=== PATIENT | female | born 1970 | race Caucasian/White ===

== ENCOUNTER → 2016-12-19 | Outpatient (CLI) | payer OTHER ==
--- NOTE | 2016-12-19 11:06 | RAD ---
Indication multinodular goiter. Follow-up. Grayscale imaging targeted to the thyroid was performed. Comparison is made to an examination 05/09/2016. The right lobe of the thyroid measures 4.9 x 1.6 x 2.4 cm. There is a dominant nodule in the right lobe of the thyroid measuring approximately 2.5 cm in greatest dimension. There is now a focus of diminished echogenicity which may represent some cystic degeneration of the dominant nodule in the right lobe. The isthmus appears unremarkable. The left lobe of the thyroid measures approximately 4.4 x 1.6 x 1.5 cm. Three nodules are again seen and have not changed appreciably relative to the previous exam. IMPRESSION: Findings remain most compatible with multinodular goiter. A significant change in the appearance of the thyroid relative to the previous exam is not seen.
== END | disposition home or self-care (01) ==
LOC: US 09:02
PROVIDERS: ATTEND Internal Medicine
DX: E04.2 Nontoxic multinodular goiter (principal)
CPT/HCPCS: 76536

== ENCOUNTER → 2020-05-07 | Outpatient (CLI) | payer MEDICARE, OTHER ==
[2019-07-20 15:00] VITALS: BP 125/76
[~2020-05-07] MED LIST: CYCL5TAB PO; DOCU100C28 PO; DULO60CA6 PO; GABA300C18 PO; HYDR-2769 PO; HYDR-3164 PO; LIDO700A21 TD; LISI10TA2 PO; METF500T PO; METF500T16 PO
--- NOTE | 2020-05-07 11:21 | RAD ---
BILATERAL SCREENING MAMMOGRAM, 3-D History: Routine screening. Comparison: 06/17/2013. Technique: MLO and CC digital tomosynthesis (3D) images obtained. Radiologist reviewed these images on dedicated workstation. Findings: Breast Tissue Density B : There are scattered areas of fibroglandular density. There are no new dominant masses, suspicious microcalcifications, or architectural distortion. Masses are present bilaterally but stable IMPRESSION: No mammographic evidence of malignancy. Recommend routine screening. BI-RADS category 1: Negative. The images were reviewed with computer-aided detection. Patient information is entered into reminder system with a target due date for the next screening mammogram. Mammography is the most sensitive method for finding small breast cancers, but it does not detect them all and is not a substitute for careful clinical examination. A negative mammogram does not negate a clinically suspicious finding and should not result in delay in biopsying a clinically suspicious abnormality. "Our facility is accredited by the [employer] Mammography Program." Electronically signed by: Yahir Melendez MD (05/07/2020 11:18 AM) [facility]
== END ==
LOC: MAMMO 08:15
PROVIDERS: ATTEND Internal Medicine
DX: Z12.31 Encounter for screening mammogram for malignant neoplasm of breast (principal)
CPT/HCPCS: 77063; 77067

== ENCOUNTER 2020-10-04 10:09 | Emergency (ER) | payer MEDICARE, OTHER ==
[~2020-10-04] VITALS: Ht 129.5 cm; Wt 101.6 kg
[~2020-10-04 10:09] MED LIST changes: +LISI10TA16 PO; -LISI10TA2 PO
[2020-10-04 10:58] LABS: BASO # 0.1 x10^3/uL (0.0-0.2); BASO % 1 % (0-3); EOS # 0.1 x10^3/uL (0.0-0.7); EOS % 1 % (0-3); HEMATOCRIT 43.4 % (36.0-47.0); LYMPH # 1.4 x10^3/uL (1.0-4.8); LYMPH % 16 % (24-48); MEAN CORPUSCULAR HEMOGLOBIN 33 pg (25-35); MEAN CORPUSCULAR HGB CONC 35 g/dL (31-37); MEAN CORPUSCULAR VOLUME 94 fL (79-100); MONO # 0.9 x10^3/uL (0.0-1.1); MONO % 10 % (0-9); NEUT # 6.5 x10^3/uL (1.8-7.7); NEUT % 72 % (31-73); PLATELET COUNT 266 x10^3/uL (140-400); RED BLOOD COUNT 4.63 x10^6/uL (3.50-5.40); RED CELL DISTRIBUTION WIDTH 13.3 % (11.5-14.5)
[2020-10-04] MEDS ORDERED: ONDANSETRON PF 4 MG/2 ML VIAL. IVP ONE (11:00)
[2020-10-04] MEDS ORDERED: FAMOTIDINE 20 MG/2 ML VIAL IVP ONE (11:00)
[2020-10-04] MEDS ORDERED: IV NORMAL SALINE 1000ML BAG 1,000 ML IV ONE (11:00)
[2020-10-04 11:22] LABS: PROTHROMBIN TIME PATIENT 13.2 SEC (11.7-14.0)
--- NOTE | 2020-10-04 11:33 | PHYS DOC ---
Past Medical History Past Medical History: Diverticulosis, Hypertension, Other Additional Past Medical Histor: CHRONIC BACK PAIN, neuropathy, RA Past Surgical History: Hysterectomy, Tonsillectomy, Other Additional Past Surgical Histo: lumbar sx, colonoscopy, adenoidectomy Smoking Status: Never Smoker Alcohol Use: None Drug Use: None General Adult EDM: Chief Complaint: ABDOMINAL PAIN HPI: HPI: Patient is a 50 year old female with history of hypertension presenting to the ED today complaining of 5 out of 10 cramping abdominal pain with nausea vomiting and diarrhea some of it bloody, symptoms have been going on for 6 months. Symptoms reoccurred yesterday. Patient denies any hematemesis. Denies any chest pain or shortness of breath. Denies any concerns for COVID-19. Review of Systems: Review of Systems: Constitutional: Denies fever or chills. [] Eyes: Denies change in visual acuity. [] HENT: Denies nasal congestion or sore throat. [] Respiratory: Denies cough or shortness of breath. [] Cardiovascular: Denies chest pain or edema. [] GI: Reports abdominal pain, nausea vomiting and bloody stools : Denies dysuria. [] Musculoskeletal: Denies back pain or joint pain. [] Integument: Denies rash. [] Neurologic: Denies headache, focal weakness or sensory changes. [] Psychiatric: Denies depression or anxiety. [] Heart Score: C/O Chest Pain: No Risk Factors: Risk Factors: DM, Current or recent (<one month) smoker, HTN, HLP, family history of CAD, obesity. Risk Scores: Score 0 - 3: 2.5% MACE over next 6 weeks - Discharge Home Score 4 - 6: 20.3% MACE over next 6 weeks - Admit for Clinical Observation Score 7 - 10: 72.7% MACE over next 6 weeks - Early Invasive Strategies Current Medications: Current Medications Medications (Trade) Dose Ordered Sig/Dee Dee Start Time Stop Time Status Last Admin Dose Admin Famotidine (Pepcid Vial) 20 mg 1X ONCE 10/04/20 11:00 10/04/20 11:01 DC 10/04/20 11:07 20 MG Ondansetron HCl (Zofran) 4 mg 1X ONCE 10/04/20 11:00 10/04/20 11:01 DC 10/04/20 11:06 4 MG Sodium Chloride 1,000 ml @ 1,000 mls/hr 1X ONCE 10/04/20 11:00 10/04/20 11:59 10/04/20 11:04 1,000 MLS/HR Allergies: Allergies: Allergies Coded Allergies Type Severity Reaction Last Updated Verified No Known Drug Allergies 06/14/13 No Physical Exam: PE: Constitutional: Well developed, well nourished, no acute distress, non-toxic appearance. [] HENT: Normocephalic, atraumatic, bilateral external ears normal, oropharynx moist, no oral exudates, nose normal. [] Eyes: PERRLA, EOMI, conjunctiva normal, no discharge. [] Neck: Normal range of motion, no tenderness, supple, no stridor. [] Cardiovascular:Heart rate regular rhythm, no murmur [] Lungs & Thorax: Bilateral breath sounds clear to auscultation [] Abdomen: Bowel sounds normal, soft, no tenderness, no masses, no pulsatile masses. [] Rectal exam-external rectum appears excoriated. No external or internal hemorrhoids or lesions noted. No stool noted on the lower rectal vault. No bleeding. Back: No tenderness, no CVA tenderness. [] Extremities: No tenderness, no cyanosis, no clubbing, ROM intact, no edema. [] Neurologic: Alert and oriented X 3, normal motor function, normal sensory function, no focal deficits noted. [] Psychologic: Affect normal, judgement normal, mood normal. [] Current Patient Data: Labs: Laboratory Tests Test 10/04/20 10:40 White Blood Count 9.0 x10^3/uL (4.0-11.0) Red Blood Count 4.63 x10^6/uL (3.50-5.40) Hemoglobin 15.0 g/dL (12.0-15.5) Hematocrit 43.4 % (36.0-47.0) Mean Corpuscular Volume 94 fL (79-100) Mean Corpuscular Hemoglobin 33 pg (25-35) Mean Corpuscular Hemoglobin Concent 35 g/dL (31-37) Red Cell Distribution Width 13.3 % (11.5-14.5) Platelet Count 266 x10^3/uL (140-400) Neutrophils (%) (Auto) 72 % (31-73) Lymphocytes (%) (Auto) 16 % (24-48) L Monocytes (%) (Auto) 10 % (0-9) H Eosinophils (%) (Auto) 1 % (0-3) Basophils (%) (Auto) 1 % (0-3) Neutrophils # (Auto) 6.5 x10^3/uL (1.8-7.7) Lymphocytes # (Auto) 1.4 x10^3/uL (1.0-4.8) Monocytes # (Auto) 0.9 x10^3/uL (0.0-1.1) Eosinophils # (Auto) 0.1 x10^3/uL (0.0-0.7) Basophils # (Auto) 0.1 x10^3/uL (0.0-0.2) Prothrombin Time 13.2 SEC (11.7-14.0) Prothrombin Time INR 1.0 (0.8-1.1) Activated Partial Thromboplast Time 25 SEC (24-38) Ethyl Alcohol Level < 10 mg/dL (0-10) Laboratory Tests 10/04/20 10:40 Vital Signs: Vital Signs Date Time Temp Pulse Resp B/P (MAP) Pulse Ox O2 Delivery O2 Flow Rate FiO2 10/04/20 10:18 98.1 99 24 160/90 (113) 96 Room Air 98.1 EKG: EKG: [] Radiology/Procedures: Radiology/Procedures: []PROCEDURE: CT ABD PELV W/ IV CONTRST ONLY CT ABDOMEN+PELVIS W History: Diarrhea. Comparison: CT abdomen and pelvis 06/14/2013. Technique: CT of the abdomen and pelvis with intravenous contrast. Findings: Lung bases: Clear lungs. No pleural or pericardial effusion. General abdomen: No ascites. No free air. Liver : Normal in size and attenuation. No masses seen. Gallbladder/Biliary Tree: Normal gallbladder. No intrahepatic or extrahepatic biliary ductal dilatation. Pancreas: Normal. Spleen: Punctate calcifications consistent with old granulomatous disease. Adrenal Glands: Normal. Genitourinary: No hydronephrosis or hydroureter.?No renal masses identified. Normal partially distended bladder contour. Gastrointestinal: Decompressed stomach. Unremarkable small bowel. Normal appendix. Mild colonic diverticulosis. Diffuse sigmoid wall thickening with mild pericolonic inflammatory stranding. No abscess or perforation identified. Lymph nodes: No lymphadenopathy. Vessels: Unremarkable. Pelvic Organs: Status post hysterectomy. Soft tissues: Small fat-containing umbilical hernia. Bones: No acute or aggressive lesions. Impression: 1. Acute uncomplicated sigmoid diverticulitis. ------ Exposure: One or more of the following individualized dose reduction techniques were utilized for this examination: 1. Automated exposure control 2. Adjustment of the mA and/or kV according to patient size 3. Use of iterative reconstruction technique. Electronically signed by: Korey Lindo MD (10/04/2020 12:29 PM) [facility] DICTATED and SIGNED BY: KOREY LINDO MD DATE: 10/04/20 [id number] 0 Course & Med Decision Making: Course & Med Decision Making Pertinent Labs and Imaging studies reviewed. (See chart for details) This is a 50-year-old female patient presenting to the ED today with complaints of nausea vomiting diarrhea with bloody stools, symptoms intermittently for 6 months. CBC with a normal WBC, normal hemoglobin and hematocrit, CMP with no acute findings. CT of the abdomen and pelvic was noted for acute noncomplicated sigmoid diverticulitis. Patient was given IV fluids in the ED, Pepcid, pain medicine, started on Cipro and sent home with Cipro and Flagyl. Provided return precautions. Provided GI for follow-up. Dragon Disclaimer: 20:20 Mobile Disclaimer: This electronic medical record was generated, in whole or in part, using a voice recognition dictation system. Departure Departure Impression: Primary Impression: Diverticulitis Disposition: 01 DC HOME SELF CARE/HOMELESS Condition: STABLE Referrals: SHIRAZ GUTIÉRREZ MD (PCP) TONIA NUÑEZ MD follow up in 1 week Patient Instructions: Diverticulitis Additional Instructions: You were evaluated in the emergency room and was noted to have uncomplicated diverticulitis on CAT scan. Please take the prescribed antibiotics until completed. Please follow-up with the GI specialist in the course of next week. Come back to the ED at any point symptoms worsen Scripts Dicyclomine Hcl (DICYCLOMINE HCL) 20 Mg Tablet 1 TAB PO TID, #30 TAB 1 Refill Prov: LISANDRA FLORES LAP CHECKER 10/04/20 Ondansetron (ONDANSETRON ODT) 4 Mg Tab.rapdis 1 TAB PO PRN Q6-8HRS, #16 TAB Prov: LISANDRA FLORES LAP CHECKER 10/04/20 Ciprofloxacin Hcl (CIPRO) 500 Mg Tablet 1 TAB PO BID for 10 Days, #20 TAB 0 Refills Prov: LISANDRA FLORES APRN 10/04/20 Metronidazole (METRONIDAZOLE) 500 Mg Tablet 1 TAB PO TID for 10 Days, #30 TAB 0 Refills Prov: LISANDRA FLORES APRN 10/04/20 LISANDRA FLORES APRN Oct 04, 2020 11:33
[2020-10-04 11:38] LABS: CREATININE 1.2 mg/dL (0.6-1.0); GFR 47.6; POTASSIUM 4.1 mmol/L (3.5-5.1)
[2020-10-04 11:41] LABS: ALBUMIN 3.4 g/dL (3.4-5.0); ALBUMIN/GLOBULIN RATIO 0.8 (1.0-1.7); MAGNESIUM 2.1 mg/dL (1.8-2.4); TOTAL BILIRUBIN 1.4 mg/dL (0.2-1.0); TOTAL PROTEIN 7.9 g/dL (6.4-8.2)
[2020-10-04] MEDS ORDERED: CONTRAST GIVEN. MC PRN (12:00)
[2020-10-04] MEDS ORDERED: IOHEXOL 300 MG/ML 100ML VIAL. IV ONE (12:00)
--- NOTE | 2020-10-04 12:31 | RAD ---
ADDENDUM #1 Question sawyer appear in this report due to a dictation system bug. Please disregard these characters . Electronically signed by: Korey Beauchamp MD (10/06/2020 9:20 AM) [facility]PELVIS W History: Diarrhea. Comparison: CT abdomen and pelvis 06/14/2013. Technique: CT of the abdomen and pelvis with intravenous contrast. Findings: Lung bases: Clear lungs. No pleural or pericardial effusion. General abdomen: No ascites. No free air. Liver : Normal in size and attenuation. No masses seen. Gallbladder/Biliary Tree: Normal gallbladder. No intrahepatic or extrahepatic biliary ductal dilatati on. Pancreas: Normal. Spleen: Punctate calcifications consistent with old granulomatous disease. Adrenal Glands: Normal. Genitourinary: No hydronephrosis or hydroureter.?No renal masses identified. Normal partially distend ed bladder contour. Gastrointestinal: Decompressed stomach. Unremarkable small bowel. Normal appendix. Mild colonic diver ticulosis. Diffuse sigmoid wall thickening with mild pericolonic inflammatory stranding. No abscess o r perforation identified. Lymph nodes: No lymphadenopathy. Vessels: Unremarkable. Pelvic Organs: Status post hysterectomy. Soft tissues: Small fat-containing umbilical hernia. Bones: No acute or aggressive lesions. Impression: 1. Acute uncomplicated sigmoid diverticulitis. ------ Exposure: One or more of the following individualized dose reduction techniques were utilized for thi s examination: 1. Automated exposure control 2. Adjustment of the mA and/or kV according to patient size 3. Use of iterative reconstruction technique. Electronically signed by: Korey Beauchamp MD (10/04/2020 12:29 PM) [facility]
[2020-10-04] MEDS ORDERED: CIPROFLOXACIN 400MG PREMIX 200 ML IV ONE (13:00)
[2020-10-04] MEDS ORDERED: ONDA4TAB12 PO (13:14)
[2020-10-04] MEDS ORDERED: METR-34 PO (13:14)
[2020-10-04] MEDS ORDERED: CIPR500T94 PO (13:14)
[2020-10-04] MEDS ORDERED: DICY20TA3 PO (13:14)
[2020-10-04 14:47] VITALS: BP 134/73
== END 2020-10-04 14:53 | disposition home or self-care (01) ==
LOC: ER 10:09
DX: K57.32 Diverticulitis of large intestine without perforation or abscess without bleeding (principal); G89.29 Other chronic pain; I10 Essential (primary) hypertension; Z90.710 Acquired absence of both cervix and uterus
CPT/HCPCS: 36415; 74177; 80053; 83690; 83735; 85025; 85610; 85730; 96361; 96365; 96375; 99285; G0480; J0744; J2405; J3490; J7030; Q9967